=== PATIENT | male | born 1945 | race Caucasian/White ===

== ENCOUNTER → 2017-11-19 | Day surgery (SDC) | payer OTHER ==
[~2017-11-19] VITALS: Ht 162.6 cm; Wt 77.2 kg
[~2017-11-19] MED LIST: AMLO2.5T PO; ASPI81TA28 PO; ATOR-24 PO; DILT120C43 PO; ISOS120T5 PO; LEVO100T7 PO; LOSA1TAB38 PO; METO50TA16 PO; NTRGSL/4 UT; OMEP20CA9 PO; PRVHFAIN PO; SPRIN/30 INH; SYMIN160 INH
[2017-11-19 07:16] VITALS: BP 151/80; PULSE 78; TEMP 36.4; O2SAT 98; Ht 162.6 cm; Wt 77.2 kg
== END | disposition home or self-care (01) ==
LOC: C.CATH 07:03
PROVIDERS: ATTEND Internal Medicine Cardiovascular Disease
DX: R94.39 Abnormal result of other cardiovascular function study (principal)

== ENCOUNTER → 2018-01-03 | Outpatient (CLI) | payer OTHER ==
[~2018-01-03] MED LIST changes: -AMLO2.5T PO; -ISOS120T5 PO; -LOSA1TAB38 PO; -NTRGSL/4 UT
--- NOTE | 2018-01-03 13:07 | DIAGNOSTIC IMAGING REPORT ---
VIDEO SWALLOW HISTORY: ASPIRATION PNEUMONIA TECHNIQUE: Video fluoroscopic evaluation of swallowing was performed in the AP and lateral projections by the speech pathology staff. The patient is fed nectar-thick and thin liquid barium, and barium pudding. FLUOROSCOPY TIME: 2.1 minutes. A cine loop submitted.. COMPARISON STUDY: None. FINDINGS: Suboptimal hyoid excursion and epiglottic deflection resulting in abhilash aspiration of the thin liquid barium. This resulted in a cough. There is also an episode of aspiration with the nectar thick liquid barium. No aspiration identified with the barium pudding. IMPRESSION: 1. Abhilash aspiration with the thin liquid barium as well as an episode of aspiration with the nectar thick liquid barium. 2. Please see the speech pathologist report for detailed findings and recommendations. Electronically signed by: Oleksandr Floyd M.D. 01/03/2018 1:06 PM Dictated Date/Time: 01/03/2018 1:02 PM
--- NOTE | 2018-01-03 16:29 | SWALLOWING EVALUATION ---
REFERRING SPEECH PATHOLOGIST: n/a HISTORY: This 72 year-old man was referred for a VFSS at [facility] in order to rule out aspiration in the setting of repeated hospital admissions at [facility] for aspiration pneumonia. The patient denies having had a Video Swallow Study in the midst of the multiple admissions for aspiration pneumonia, but his says that he did have one many years ago after completing treatment for head and neck CA. The patient has a PMH significant for CA of the soft palate occurring ~ 8 years ago (per patient report). He reports having chemo and radiation treatment at [facility] in [place], [place]. He had a PEG-tube during treatment, but was subsequently cleared to have it removed after treatment ended. The patient also has PMH significant for lung CA treated via (L) upper lobectomy and chemotherapy. The patient denies having radiation for the lung CA. Other PMH: angioplasty with stent, CVA/TIA and recent cancellation of scheduled cardiac catheterization. Currently the patient's diet level is regular and he has complaints of "gurgling" when eating and drinking and nasal bolus loss. PROCEDURE: The patient was seen in the Radiology Department of [facility] for the VFSS. Cursory examination of the oral cavity revealed him to be edentulous. He states he has been edentulous for ~20 years. Movement of the articulators was impaired as evidenced by no movement of the soft palate. The velum was visibly scarred and very firm to touch. Speech is hypernasal. The patient was seated on a stool and was viewed in both the Anterior-Posterior (A-P) and Lateral planes. Volitional phonation exercises completed in the A-P plane revealed bilateral vocal fold movement and vocal intensity within functional limits, but with hypernasal quality. In the lateral plane, the patient was given the following boluses: 1 tsp. thin liquid barium x 2, 1 tsp. nectar-thick liquid barium, single swallow thin-honey liquid barium self-presented from a cup, 1 tsp. barium pudding, 1 club cracker with barium pudding, and single swallow nectar-thick liquid barium self-presented from a cup. The patient was then repositioned into the A-P plane and given 1 tsp. barium pudding. RESULTS: Oral Stage: No interlabial bolus escape. Able to hold thin liquid bolus between tongue and palate during oral bolus hold exercise. Mastication and posterior bolus transfer were completed WNL. Diffuse lining of oral cavity after swallowing the bolus. Initiation of the pharyngeal swallow was latent occurring when the bolus head was in the pyriform sinuses. No significant oral-stage dysphagia. Pharyngeal Stage: Contrast lining between soft palate and posterior pharyngeal wall without escape into the nasopharynx. Laryngeal elevation and anterior hyoid excursion were incomplete. THERE WAS NO EPIGLOTTIC INVERSION. THERE WAS NO LARYNGEAL VESTIBULAR CLOSURE. Diminished pharyngeal stripping wave. Pharyngeal contraction complete. Complete distention and duration of PES opening. No bolus between tongue base and pharyngeal wall. No significant pharyngeal bolus retention after the swallow. ELIZ ASPIRATION WITH INCONSISTENT COUGH RESPONSE WITH THIN LIQUIDS and PENETRATION WITH NECTAR-THICK LIQUIDS without actual aspiration. No penetration or aspiration with solids. No difficulty clearing solids from pharynx. The patient does not have adequate airway protection d/t effects of radiation. Esophageal Stage: A pudding bolus traversed the esophagus without evidence of impedance. SUMMARY/RECOMMENDATIONS: This patient presents with moderate-severe pharyngeal dysphagia. The following is recommended: 1. Regular diet with HONEY THICK LIQUIDS: NO MIXED CONSISTENCY FOODS (e.g., no juicy fruits, cold cereal, soups that are not thick purees, ice cream, etc.) 2. Aspiration precautions: fully upright for meals, alternate liquids and solids, use stringent oral hygiene protocol to minimize oral bacteria aspirated in secretions or with oral intake 3. Oral Hygiene Protocol: clean ALL surfaces of mouth with soft toothbrush and toothpaste PRIOR TO any oral intake in the morning, after meals, and before bed at night 4. Strongly recommend home health or outpatient f/u with [facility] [employer] services local to the patient to do further education, help with implementation of aspiration precautions, and to assist patient as effects of radiation continue to worsen over time. 5. The patient will need careful and consistent monitoring for s/s dehydration. A summary of the results and recommendations was discussed with the patient and his immediately following the study. I am unaware of any evidence-based rehabilitation protocol to improve the patient's dysphagia due to effects of radiation once the scarring of tissues has gotten to this point. Thank you for referral of this patient. Please contact me at if any additional information is needed.
== END | disposition home or self-care (01) ==
LOC: C.RAD 10:49
PROVIDERS: ATTEND Family Medicine
DX: J69.0 Pneumonitis due to inhalation of food and vomit (principal); R13.13 Dysphagia, pharyngeal phase

== ENCOUNTER → 2018-02-08 | Day surgery (SDC) | payer OTHER ==
[2018-02-01 07:55] VITALS: Ht 162.6 cm; Wt 77.3 kg
[~2018-02-08] VITALS: Ht 162.6 cm; Wt 77.3 kg
[~2018-02-08] MED LIST changes: +ALBU18002 INH; -LEVO100T7 PO; +LEVO88TA PO; +LIDOCAINE HCL 2% 2 ML VIAL (20MG/ML) ONE; +METO-551 PO; +NTRGSL/4 UT; +OXGN; +PROPOFOL IV EMULSION 10 MG/ML 20 ML VIAL IV ONE; -PRVHFAIN PO; +SODIUM CHLORIDE 0.9% 500ML 500 ML IV ONE; +THIC1LIQ PO
--- NOTE | 2018-02-08 08:30 | Endo History and Physical ---
History & Physical Date of Service: Feb 08, 2018. Chief Complaint: dysphagia Referring Physician: Joey Del Toro History of Present Illness Hx of Oropharyngeal tumor s/p radiochemotherapy, now with recurrent aspiration and dysphagia. Past Surgical History Hx Cardiac Surgery: Yes (HEART CATH, NO STENTS) Hx Internal Defibrillator: No Hx Pacemaker: No Hx Abdominal Surgery: No Hx of Implantable Prosthesis: No Hx Post-Op Nausea and Vomiting: No Hx Cancer Surgery: Yes (LEFT UPPER LUNG LOBECTOMY) Hx Thoracic Surgery: No Hx Orthopedic: No Hx Urinary Tract Surgery: No Family History None Social History Smoking Status: Former Smoker Hx Substance Use: No Hx Alcohol Use: No Allergies Coded Allergies: Lisinopril (Verified Allergy, Unknown, COUGH, 02/08/18) Current Medications Reported Home Medications Medications Dose Route/Sig Max Daily Dose Days Date Category Dose Instructions Thick-It (Thickened Products) 1 Liq Liq 1 Dose PO UD 02/01/18 Reported WITH ANY FOOD OR WATER Oxygen Gas 2 Liters NA HS 02/01/18 Reported Nitrostat (Nitroglycerin) 0.4 Mg Tab 0.4 Mg UT UD PRN 02/01/18 Reported Lopressor (Metoprolol Tartrate) 50 Mg Tab 50 Mg PO QPM 02/01/18 Reported Proair Respiclick (Albuterol Sulfate) 108 Mcg/Act Aer 2 Puffs INH Q4H PRN 02/01/18 Reported Synthroid (Levothyroxine Sodium) 88 Mcg Tab 88 Mcg PO QAM 02/01/18 Reported Cartia Xt (Diltiazem Hcl Coated Beads) 120 Mg Cap 1 Cap PO QPM 11/19/17 Reported Aspirin Ec (Aspirin) 81 Mg Tab 81 Mg PO QAM 11/19/17 Reported Spiriva Handihaler (Tiotropium Gary) 30 Puff/540 Mcg Aerp 1 Cap INH QAM 11/18/17 Reported Prilosec (Omeprazole) 20 Mg Cap 1 Cap PO QPM 11/18/17 Reported Lipitor (Atorvastatin Calcium) 40 Mg Tab 1 Tab PO QPM 11/18/17 Reported Lopressor (Metoprolol Tartrate) 50 Mg Tab 2 Tabs PO QAM 11/18/17 Reported Symbicort 160/4.5 Inhaler (Budesonide/Formoterol Fumarate) 120 Puffs/ Aero 2 Puffs INH BID 1/4/18 Reported Vital Signs Weight (Kilograms): 77.27 Height (Feet): 5 Height (Inches): 4 Date Time Temp Pulse Resp B/P (MAP) Pulse Ox O2 Delivery O2 Flow Rate FiO2 02/08/18 08:10 37.0 88 24 198/101 (133) 93 Room Air 193/101 (131) Physical Exam General Appearance: no apparent distress Respiratory/Chest: Auscultation: breath sounds normal Cardiovascular: Heart Auscultation: RRR Abdomen: Inspection & Palpation: soft Liver: non-tender Assessment and Plan Stable for EGD.
--- NOTE | 2018-02-08 08:54 | Discharge Instructions ---
Endoscopy Patient Instructions Date / Procedure(s) Performed Feb 08, 2018. EGD Allergy Information Coded Allergies: Lisinopril (Verified Allergy, Unknown, COUGH, 02/08/18) Discharge Date / Findings Feb 08, 2018. Normal Esophagus, dilated up to 42Fr Savary. Normal Stomach and Duodenum. Medication Instructions Stopped Medication(s): 81mg Aspirin last taken on 02/07/18 Provider Instructions Activity Restrictions - No exercising or heavy lifting for 24 hours. - Do not drink alcohol the day of the procedure. - Do not drive a car or operate machinery until the day after the procedure. - Do not make any important decisions or sign important papers in 24 hours after the procedure. Following Day: - Return to full activity which may include returning to work/school. Diet Start your diet with liquids and light foods (jello, soup, juice, toast). Then eat your usual diet if not nauseated. Treatment For Common After Affects For mild abdominal pain, bloating, or excessive gas: - Rest - Eat lightly - Lie on right side Follow-Up Information Follow-up with Joey Del Toro as scheduled Anesthesia Information What You Should Know You have had a procedure that required some medicine to reduce anxiety and discomfort. This treatment is called moderate sedation. After receiving the treatment, you may be sleepy, but you will be able to breathe on your own. The effects of the treatment may last for several hours. Follow these instructions along with Activity/Diet recommendations noted above: * Do NOT do anything where dizziness or clumsiness would be dangerous. * Rest quietly at home today, then you can be up and about tomorrow. * Have a responsible person stay with you the rest of today. * You may have had an I.V. today. If so, you may take the dressing off later today. Recommendations Call your doctor if: * Trouble breathing * Continuous vomiting for more than 24 hours * Temperature above 101 degrees * Severe abdominal pain or bloating * Pain not relieved by pain medicine ordered * There is increased drainage or redness from any incision * A large amount of rectal bleeding greater than 2-3 tablespoons. (If you had a polyp/s removed or have hemorrhoids, a small amount of blood - from the rectum is to be expected.) * You have any unanswered questions or concerns. IN THE EVENT OF A SERIOUS EMERGENCY, GO TO THE NEAREST EMERGENCY ROOM Your discharge instructions were prepared by provider Stephanie Quinn. Patient Instructions Signature Page Ashkan Bryant Patient (or Guardian) Signature/Date: I have read and understand the instructions given to me by my caregivers. Caregiver/RN/Doctor Signature/Date: The above-named patient and/or guardian has received patient instructions on this date. + Original Patient Signature Page (only) stays with chart. Please make copy for patient.
--- NOTE | 2018-02-08 09:04 | GI REPORT ---
Procedure Date: 02/08/2018 8:32 AM Procedure: Upper GI endoscopy Indications: Dysphagia Medicines: Monitored Anesthesia Care Complications: No immediate complications. Estimated Blood Loss: Estimated blood loss: none. Procedure: Pre-Anesthesia Assessment: - Prior to the procedure, a History and Physical was performed, and patient medications and allergies were reviewed. The patient is competent. The risks and benefits of the procedure and the sedation options and risks were discussed with the patient. All questions were answered and informed consent was obtained. Patient identification and proposed procedure were verified by the physician and the nurse in the procedure room. Mental Status Examination: alert and oriented. Airway Examination: normal oropharyngeal airway and neck mobility. Respiratory Examination: clear to auscultation. CV Examination: normal. ASA Grade Assessment: III - A patient with severe systemic disease. After reviewing the risks and benefits, the patient was deemed in satisfactory condition to undergo the procedure. The anesthesia plan was to use monitored anesthesia care (MAC). Immediately prior to administration of medications, the patient was re-assessed for adequacy to receive sedatives. The heart rate, respiratory rate, oxygen saturations, blood pressure, adequacy of pulmonary ventilation, and response to care were monitored throughout the procedure. The physical status of the patient was re-assessed after the procedure. After obtaining informed consent, the endoscope was passed under direct vision. Throughout the procedure, the patient's blood pressure, pulse, and oxygen saturations were monitored continuously. The Scope was introduced through the mouth, and advanced to the second part of duodenum. The Endoscope was introduced through the and advanced to the. The upper GI endoscopy was accomplished without difficulty. The patient tolerated the procedure well. Findings: No gross lesion in the examined oropharynx except for mucosal changes suggestive of prior radiation therapy. The examined esophagus was normal. The Z-line was regular and was found 40 cm from the incisors. No endoscopic abnormality was evident in the esophagus to explain the patient's complaint of dysphagia. It was decided, however, to proceed with dilation of the entire esophagus. A guidewire was placed and the scope was withdrawn. Dilation was performed with a Savary dilator with no resistance at 36 Fr and 42 Fr. The dilation site was examined following endoscope reinsertion and showed no mucosal tear. The entire examined stomach was normal. The duodenal bulb and second portion of the duodenum were normal. Impression: - Normal esophagus. - No endoscopic esophageal abnormality to explain patient's dysphagia. Esophagus dilated. Dilated. - Normal stomach. - Normal duodenal bulb and second portion of the duodenum. - No specimens collected. Recommendation: - Discharge patient to home. - Follow up with ENT. - Consider PEG tube if deemed necessary by ENT assessment. - Return to referring physician. Stephanie Quinn MD 02/08/2018 9:03:55 AM This report has been signed electronically. Note Initiated On: 02/08/2018 8:32 AM I attest to the content of the Intraoperative Record and orders documented therein, exceptions below
[2018-02-08 09:26] VITALS: BP 192/96; PULSE 82; O2SAT 95
--- NOTE | 2018-02-08 10:25 | Anesthesiology Progress Note ---
Anesthesia Post Op Note Date & Time Feb 08, 2018 at 10:25 Vital Signs Pain Intensity: 0 Vital Signs Past 12 Hours Date Time Temp Pulse Resp B/P (MAP) Pulse Ox O2 Delivery O2 Flow Rate FiO2 02/08/18 09:26 82 20 192/96 (128) 95 Room Air 02/08/18 09:11 85 20 192/93 (126) 95 Room Air 02/08/18 08:56 97 18 103/77 (86) 96 Room Air 02/08/18 08:10 37.0 88 24 198/101 (133) 93 Room Air 193/101 (131) Notes Mental Status: alert / awake / arousable, participated in evaluation Pt Amnestic to Procedure: Yes Nausea / Vomiting: adequately controlled Pain: adequately controlled Airway Patency, RR, SpO2: stable & adequate BP & HR: stable & adequate Hydration State: stable & adequate Anesthetic Complications: no major complications apparent
== END | disposition home or self-care (01) ==
LOC: C.GI 07:28
PROVIDERS: ATTEND Student in an Organized Health Care Education/Training Program
DX: R13.10 Dysphagia, unspecified (principal); J44.9 Chronic obstructive pulmonary disease, unspecified; I10 Essential (primary) hypertension; I25.10 Atherosclerotic heart disease of native coronary artery without angina pectoris; I25.2 Old myocardial infarction; Z86.73 Personal history of transient ischemic attack (TIA), and cerebral infarction without residual deficits; Z79.82 Long term (current) use of aspirin; Z87.891 Personal history of nicotine dependence